=== PATIENT | female | born 1950 | race Caucasian/White ===

== ENCOUNTER 2019-12-09 19:31 | Emergency (ER) | payer OTHER ==
[~2019-12-09] VITALS: Ht 154.9 cm; Wt 86.2 kg
[2019-12-09 19:43] VITALS: BP 142/68
--- NOTE | 2019-12-09 20:10 | NUR ---
COVID SWAB COLLECTED. SENT TO LAB
== END 2019-12-09 20:18 | disposition home or self-care (01) ==
LOC: ER 19:31
DX: Z20.828 Contact with and (suspected) exposure to other viral communicable diseases (principal); M19.90 Unspecified osteoarthritis, unspecified site
CPT/HCPCS: 99283; C9803; U0003

== ENCOUNTER 2023-11-17 13:28 | Emergency (ER) | payer OTHER ==
[~2023-11-17] VITALS: Ht 152.4 cm; Wt 77.1 kg
[2023-11-17 14:14] VITALS: TEMP 98.4
[2023-11-17] MEDS ORDERED: ACETAMINOPHEN ES 500 MG TABLET ONE (15:33)
[2023-11-17] MEDS: ACETAMINOPHEN ES 500 MG TABLET PO ONE (15:37)
[2023-11-17 16:50] LABS: BASOPHILS # (AUTO) 0.1 K/uL (0.0-0.2); BASOPHILS % (AUTO) 0.6 % (0.0-2.0); EOSINOPHILS # (AUTO) 0.1 K/uL (0.0-0.7); EOSINOPHILS % (AUTO) 1.4 % (0.0-6.0); HEMATOCRIT 38 % (33-45); HEMOGLOBIN 13.2 g/dL (11.5-14.8); LYMPHOCYTES # (AUTO) 2.5 K/uL (0.8-4.8); LYMPHOCYTES % (AUTO) 24.6 % (20.0-44.0); MEAN CORPUSCULAR HEMOGLOBIN 29 PG (26.0-33.0); MEAN CORPUSCULAR HGB CONC 34 g/dl (31.0-36.0); MEAN CORPUSCULAR VOLUME 85 fL (82-100); MONOCYTES # (AUTO) 0.9 K/uL (0.1-1.30); MONOCYTES % (AUTO) 8.9 % (2.0-12.0); NEUTROPHILS # (AUTO) 6.6 K/uL (1.8-8.9); NEUTROPHILS % (AUTO) 64.5 % (43.0-81.0); PLATELET COUNT (AUTO) 259 K/uL (150-450); WHITE BLOOD COUNT (AUTO) 10.2 K/uL (4.3-11.0)
[2023-11-17 16:59] LABS: CALCIUM, SERUM 9.2 mg/dL (8.5-10.1); CARBON DIOXIDE 28 mmol/L (21-32); CHLORIDE 101 mmol/L (98-107); CREATININE 0.6 mg/dL (0.6-1.3); GLUCOSE 163 mg/dL (74-106); POTASSIUM 4.2 mmol/L (3.5-5.1); SODIUM SERUM 136 mmol/L (136-145); UREA NITROGEN, BLOOD 13 mg/dL (7-18)
[2023-11-17 17:05] LABS: ALANINE AMINOTRANSFERASE 16 U/L (12-78); ALBUMIN 3.4 g/dL (3.4-5.0); ALKALINE PHOSPHATASE 76 U/L (46-116); ASPARTATE AMINOTRANSFERASE 12 U/L (15-37); BILIRUBIN,TOTAL 0.4 mg/dL (0.2-1.0); TOTAL PROTEIN, SERUM 7.2 g/dL (6.4-8.2)
[2023-11-17 17:22] LABS: URIC ACID 4.5 mg/dL (2.6-7.2)
[2023-11-17 18:40] VITALS: BP 126/69; O2SAT 99
[2023-11-17] MEDS ORDERED: DOXY100C2 PO (20:01)
[2023-11-17] MEDS ORDERED: ACET-2605 PO (20:01)
[2023-11-17] MEDS: DOXYCYCLINE HYCLATE (100 MG) 100 MG TABLET PO ONE (20:02)
[2023-11-17] MEDS ORDERED: DOXYCYCLINE HYCLATE (100 MG) 100 MG TABLET ONE (20:02)
[2023-11-18] MEDS ORDERED: DIATR MEGLU/DIATRIZOATE SODIUM 30 ML BOTTLE (GASTROGRAPHIN) ONE (12:02)
== END 2023-11-17 20:14 | disposition home or self-care (01) ==
LOC: ER 13:41
DX: M79.644 Pain in right finger(s) (principal); M79.89 Other specified soft tissue disorders; E11.9 Type 2 diabetes mellitus without complications; F32.A Depression, unspecified; F41.9 Anxiety disorder, unspecified; M19.90 Unspecified osteoarthritis, unspecified site
CPT/HCPCS: 36415; 73140-TC; 80053-TC; 84550-TC; 85025-TC; Q9963